=== PATIENT | male | born 1985 | race Caucasian/White ===

== ENCOUNTER 2017-10-02 13:57 | Emergency (ER) | payer SELFPAY ==
[2017-10-02] VITALS (7 sets, daily range): BP systolic 121–162; BP diastolic 72–99; PULSE 69–88; RESP 16–18; TEMP 36.8; O2SAT 96–100; BMI 24.5
--- NOTE | 2017-10-02 15:30 | ED.DCSUM_ITS ---
- ER Visit Summary Date of Service: 10/02/17 Chief Complaint: Seeking help for substance abuse and vague suicidal ideation History of Present Illness: The patient is a 31 M with a history of traumatic brain injury and drug addiction who presents with his family for an intervention. Patient states he is having thoughts of not wanting to be here anymore but denies any actual active suicidal thoughts or a plan. He was in court today for another GRANT for using marijuana. Patient endorses current marijuana use but denies any other substance use actively. He denies having any withdrawal symptoms. He drinks 5-6 beers a day with the last one this morning. No history of withdrawal seizures. Family states that the patient's daughter is now old enough to understand what he is going through and they want him to get some inpatient help because outpatient treatments in the past have been manipulated by him. As any other medical history. Physical Examination: Vital signs: afebrile, hemodynamically stable, no hypoxia on room air General: well nourished, well developed, in no distress Skin: warm, dry, no rash, no pallor HEENT: normocephalic and atraumatic; PERRL, EOMI, moist mucous membranes Cardiovascular: regular rate and rhythm without murmurs, no peripheral edema, 2 + pulses all distal extremities Respiratory: No increased work of breathing, lungs are clear to auscultation bilaterally, no rales, rhonchi or wheezing Abdominal: Abdomen is soft, nontender with normoactive bowel sounds, no guarding or rebound, no masses MSK: Moves all extremities, no deformities, normal strength Neuro: Awake and alert, oriented ?4. No facial droop, sensation and motor function intact and symmetric PSych: Patient has a flat affect, no active suicidal or homicidal ideation. No appearance of interaction with internal stimuli. Test Results: Abnormal Lab Results 10/02/17 10/02/17 10/02/17 15:30 15:30 15:30 WBC 9.2 RBC 4.74 Hgb 15.6 Hct 45.1 MCV 95.1 H MCH 32.9 H MCHC 34.6 RDW 12.0 RDW Differential 40.9 Plt Count 263 MPV 9.4 Immature Gran % (Auto) 0.300 Neut % (Auto) 66.7 Lymph % (Auto) 24.6 [place] % (Auto) 7.4 Eos % (Auto) 0.8 Baso % (Auto) 0.2 Absolute Neuts (auto) 6.1 Absolute Lymphs (auto) 2.26 Total Counted Not Reportable Sodium 137 Potassium 4.1 Chloride 102 Carbon Dioxide 28.0 Anion Gap 7 BUN 23 H Creatinine 1.02 Estim Creat Clear Calc 133.46 Est GFR (MDRD) Af Amer 110 Est GFR (MDRD) Non-Af 91 BUN/Creatinine Ratio 22.5 H Glucose 89 Calcium 9.1 Total Bilirubin Direct Bilirubin AST ALT Alkaline Phosphatase Total Protein Albumin Globulin TSH 0.89 Urine Opiates Screen Urine Methadone Screen Ur Barbiturates Screen Ur Phencyclidine Scrn Ur Amphetamines Screen U Methamphetamin-MDMA U Benzodiazepines Scrn Urine Cocaine Screen U Cannabinoids Screen Ur Drug Screen Comment Ethyl Alcohol < 3.0 10/02/17 10/02/17 15:30 15:45 WBC RBC Hgb Hct MCV MCH MCHC RDW RDW Differential Plt Count MPV Immature Gran % (Auto) Neut % (Auto) Lymph % (Auto) [place] % (Auto) Eos % (Auto) Baso % (Auto) Absolute Neuts (auto) Absolute Lymphs (auto) Total Counted Sodium Potassium Chloride Carbon Dioxide Anion Gap BUN Creatinine Estim Creat Clear Calc Est GFR (MDRD) Af Amer Est GFR (MDRD) Non-Af BUN/Creatinine Ratio Glucose Calcium Total Bilirubin 0.80 Direct Bilirubin 0.19 AST 15 ALT 25 Alkaline Phosphatase 86 Total Protein 7.8 Albumin 4.2 Globulin 3.6 TSH Urine Opiates Screen NEGATIVE Urine Methadone Screen NEGATIVE Ur Barbiturates Screen NEGATIVE Ur Phencyclidine Scrn NEGATIVE Ur Amphetamines Screen NEGATIVE U Methamphetamin-MDMA NEGATIVE U Benzodiazepines Scrn NEGATIVE Urine Cocaine Screen NEGATIVE U Cannabinoids Screen POSITIVE H Ur Drug Screen Comment Ethyl Alcohol Emergency Department Course and Treatment: Patient was medically cleared, and his tox screen was positive only for cannabinoids. No signs of alcohol withdrawal while in the emergency department. He was evaluated by the crisis intervention team, who felt he was actively suicidal, as the patient told them his plan was to intentionally overdose on heroin to kill himself. Because he is now making actively suicidal statements and has a plan, he will be placed in an inpatient facility. Final disposition is pending placement for further psychiatric care. Treatment Plan: [] Disposition: anticipate transfer to inpatient psychiatric treatment facility Impression: Polysubstance abuse, alcohol abuse, suicidal ideation This note was generated with Gl[employer]ople dictation software. It may contain incorrect words, spelling, and punctuation that were not noted in review of the chart prior to signing ED Disposition - Plan for ED Patient: Chief Complaint: Suicidal Referrals: Mohsen Mchugh MD [Primary Care Provider] -
--- NOTE | 2017-10-02 15:42 | EKG12_ITS ---
Test Reason : MENTAL HEALTH Blood Pressure : / mmHG Vent. Rate : 060 BPM Atrial Rate : 060 BPM P-R Int : 152 ms QRS Dur : 106 ms QT Int : 400 ms P-R-T Axes : 034 039 051 degrees QTc Int : 400 ms Normal sinus rhythm Normal ECG Confirmed by CHITRA PERERA, JOVON ([id number]), commissioning editor GERARD HANDLEY ([id number] on 10/05/2017 2:16:01 PM Referred By: KRISTIN Confirmed By:JOVON BUENROSTRO MD
[2017-10-02 16:15] LABS: Amphetamine Urine VISTA NEGATIVE (<1000 ng/mL); Barbiturate Urine VISTA NEGATIVE (< 200 ng/mL); Benzodiazepine Urine VISTA NEGATIVE (< 200 ng/mL); Cocaine Urine VISTA NEGATIVE (< 300 ng/mL); Ecstacy Urine VISTA NEGATIVE (< 500 ng/mL); Methadone Urine VISTA NEGATIVE (< 300 ng/mL); PCP Urine VISTA NEGATIVE (< 25 ng/mL); THC Urine VISTA POSITIVE (< 50 ng/mL); Vista UDS pH Range 5
[2017-10-02 16:15] LABS: Absolute Lymphocyte Count 2.26 X10^3/ul (0.83-4.51); Absolute Neutrophil Count 6.1 X10^3/uL (2.0-7.7); Basophil# 0.02 X10^3/uL; Basophil% 0.2 % (0-1); Eosinophil# 0.07 X10^3/uL; Eosinophils% 0.8 % (0-5); Hematocrit 45.1 % (40-54); Hemoglobin 15.6 g/dl (13.0-16.5); Lymphocyte # 2.26 X10^3/ul (4.0); Lymphocyte % 24.6 % (19-41); Mean Corp Hgb Conc 34.6 g/gl (32-36); Mean Corpuscular Hgb 32.9 pg (27.0-32.0); Mean Corpuscular Volume 95.1 fL (80-94); Mean Platelet Vol. 9.4 fl (6.2-12.0); Monocyte# 0.68 X10^3/uL; Monocyte% 7.4 % (0-10); Neutrophil # 6.13 X10^3/uL (2.7-7.7); Neutrophil % 66.7 % (47-70); Platelet Count 263 K/mm3 (150-450); RBC Distribution Width SD 40.9 fl (35.1-43.9); Red Blood Count 4.74 M/mm3 (4.6-6.2); White Blood Count 9.2 K/mm3 (4.4-11.0)
[2017-10-02 16:16] LABS: POSITIVE COUNT NO; POSITIVE DIFFERENTIAL NO; POSITIVE MORPHOLOGY NO
[2017-10-02 16:17] LABS: Anion Gap 7 (5-15); BUN 23 mg/dL (7-18); BUN/Creat Ratio 22.5 RATIO (10-20); Calcium,Total 9.1 mg/dL (8.5-10.1); Chloride 102 mmol/L (98-107); Creatinine, Serum 1.02 mg/dL (0.70-1.30); EST Glomerular Filtration Rate 91 mL/min (>60); Est Glom Filt Rate - Afr Amer 110 mL/min (>60); Estimated Creatinine Clearance 133.46 ml/min; Glucose 89 mg/dL (74-106); Potassium 4.1 mmol/L (3.5-5.1); Sodium Level 137 mmol/L (136-145); Thyroid Stim Hormone (TSH) 0.89 uIU/mL (0.358-3.74)
[2017-10-02 16:23] LABS: Alcohol, Blood (Medical)-Serum < 3.0 mg/dL
--- NOTE | 2017-10-02 16:28 | ED.RN ---
[facility]
[2017-10-02 21:32] LABS: AST(SGOT) 15 U/L (15-37); Alanine Aminotransfer ALT/SGPT 25 U/L (16-61); Albumin, Serum 4.2 g/dL (3.2-5.0); Alkaline Phosphatase 86 U/L (45-117); Bilirubin, Direct 0.19 mg/dL (0.00-0.30); Globulin 3.6 g/dL (2.2-4.2); Protein, Total 7.8 g/dL (6.4-8.2)
[2017-10-03] VITALS (7 sets, daily range): BP systolic 104–126; BP diastolic 65–77; PULSE 54–84; RESP 14–18; TEMP 36.8; O2SAT 98–100
== END 2017-10-03 09:30 ==
PROVIDERS: Emergency Provider Emergency Medicine; Family Provider Family Medicine; PCP Family Medicine
DX: R45.851 Suicidal ideations (principal); F19.10 Other psychoactive substance abuse, uncomplicated; F10.10 Alcohol abuse, uncomplicated; Y90.9 Presence of alcohol in blood, level not specified; Z87.820 Personal history of traumatic brain injury; Z72.0 Tobacco use; F12.90 Cannabis use, unspecified, uncomplicated
CPT/HCPCS: 80048; 80076; 80307; 80320; 84443; 85025; 93005; 99284; G0480

== ENCOUNTER 2019-05-27 20:36 | Emergency (ER) | payer SELFPAY ==
[2017-10-02 14:00] VITALS: BMI 24.5
[2019-05-27 20:36] VITALS: BP 175/75; PULSE 67; RESP 16; TEMP 36.4; O2SAT 97; BMI 21.9
--- NOTE | 2019-05-27 20:49 | CT_ITS ---
STUDY: CT CERVICAL SPINE WITHOUT CONTRAST REASON FOR EXAM: Male, 33 years old. RADIATION DOSAGE (If Supplied By Facility): CTDIvol = ( 22.53 ) mGy, DLP = ( 652.30 ) mGycm TECHNIQUE: High resolution transaxial imaging was performed without contrast material. Sagittal and coronal images were reconstructed. Individualized dose optimization techniques were used for this CT. COMPARISON: None FINDINGS: Normal craniovertebral junction. Normal anterior atlantoaxial articulation. Normal odontoid process. Normal cervical lordosis. Normal vertebral bodies and posterior osseous elements. C2-3: Normal endplates. Normal disc height and morphology. Normal central canal and intervertebral neuroforamina. C3-4: Normal endplates. Normal disc height and morphology. Normal central canal and intervertebral neuroforamina. C4-5: Normal endplates. Normal disc height and morphology. Normal central canal and intervertebral neuroforamina. C5-6: Normal endplates. Normal disc height and morphology. Normal central canal and intervertebral neuroforamina. C6-7: Normal endplates. Normal disc height and morphology. Normal central canal and intervertebral neuroforamina. C7-T1: Normal endplates. Normal disc height and morphology. Normal central canal and intervertebral neuroforamina. Normal visualized soft tissue structures. CT/Spine Cervical without Contras IMPRESSION: Normal unenhanced CT examination of the cervical spine. Electronically Signed: Jazmin Solares MD at 21:42 EDT Tel , Service support ,
--- NOTE | 2019-05-27 20:49 | CT_ITS ---
STUDY: CT BRAIN WITHOUT CONTRAST REASON FOR EXAM: Male, 33 years old. Fell from attic to floor. RADIATION DOSAGE (If Supplied By Facility): CTDIvol = ( 44.99 ) mGy, DLP = ( 829.85 ) mGycm TECHNIQUE: Transaxial CT imaging of the brain was performed without administration of intravenous contrast material. Individualized dose optimization techniques were used for this CT. COMPARISON: No relevant priors. FINDINGS: Normal soft tissue structures. Normal calvarium. Normal size ventricles and extra-axial spaces for the patient's age. Normal white matter tracts of the cerebral hemispheres. Normal basal ganglia and thalami. Normal brainstem. Normal cerebellum. There is no intracranial hemorrhage. There are no findings of an acute ischemic infarction. There is partial opacification of the ethmoid sinuses may be secondary to history of sinusitis. CT/Brain/Head without Contrast IMPRESSION: No acute intracranial process. Electronically Signed: Jazmin Solares MD at 21:40 EDT Tel , Service support ,
--- NOTE | 2019-05-27 20:50 | RAD_ITS ---
STUDY: X-RAY CHEST REASON FOR EXAM: Male, 33 years old. Fall out of attic. Pain. TECHNIQUE: Frontal and lateral views of the chest. COMPARISON: None. FINDINGS: The lungs are clear and expanded. There is no demonstrated pleural abnormality. Normal size heart. Normal mediastinum and suzi. Normal visualized pulmonary arteries. Normal visualized aortic arch and descending thoracic aorta. Normal visualized thoracic spine. Normal visualized ribs, clavicles, and shoulders. There is no demonstrated abnormality of the visualized soft tissue structures of the upper abdomen. RAD/Chest PA and Lateral IMPRESSION: No acute cardiopulmonary process. Electronically Signed: Jazmin Solares MD at 21:48 EDT Tel , Service support ,
--- NOTE | 2019-05-27 20:50 | RAD_ITS ---
STUDY: X-RAY - RIGHT WRIST REASON FOR EXAM: Male, 33 years old. Fall. TECHNIQUE: 3 view(s) of the wrist were obtained. COMPARISON: None. FINDINGS: There is a nondisplaced intra-articular distal radial fracture. No dislocation is visualized. There is overlying soft tissue swelling. Normal visualized distal ulna. Normal radiocarpal articulation. Normal distal radioulnar articulation. Normal carpal bones. Normal carpal articulations. Normal carpometacarpal articulation of the thumb. Normal second through fifth carpometacarpal articulations. Normal visualized metacarpal bones. RAD/Wrist min 3 Views IMPRESSION: Intra-articular distal radial fracture. Electronically Signed: Jazmin Solares MD at 21:50 EDT Tel , Service support ,
--- NOTE | 2019-05-27 20:53 | CT_ITS ---
STUDY: CT ABDOMEN AND PELVIS WITHOUT CONTRAST REASON FOR EXAM: Male, 33 years old. Fall. RADIATION DOSAGE (If Supplied By Facility): CTDIvol = ( 13.66 ) mGy, DLP = ( 713.09 ) mGycm TECHNIQUE: Transaxial images were obtained from the dome of the diaphragm to the symphysis pubis without oral contrast, and without intravenous contrast. Sagittal and coronal images were reconstructed. Individualized dose optimization techniques were used for this CT. COMPARISON: None. FINDINGS: The visualized lung bases are unremarkable. The visualized portions of the heart are within normal limits. The lack of intravenous contrast limits evaluation of solid visceral organs. Normal liver. Normal gallbladder and extrahepatic biliary system. Normal spleen. Normal pancreas. Normal bilateral adrenal glands. Normal right kidney. Normal left kidney. Normal visualized stomach. Normal small intestine. Normal colon. There is non-visualization of the appendix. Normal abdominal aorta. Normal inferior vena cava. Normal retroperitoneum. Normal urinary bladder. Normal abdominal wall. Normal osseous structures. CT/Abdomen/Pelvis without Cont IMPRESSION: No acute intra-abdominal injury. Electronically Signed: Jazmin Solares MD at 21:47 EDT Tel , Service support ,
--- NOTE | 2019-05-27 20:53 | RAD_ITS ---
STUDY: X-RAY - PELVIS AND RIGHT HIP REASON FOR EXAM: Male, 33 years old. Fall. TECHNIQUE: 2 views of the pelvis and hip. COMPARISON: None. FINDINGS: There is a non-specific bowel gas pattern. Normal visualized soft tissue structures. Normal bilateral iliac wings, sacroiliac joints and visualized sacrum. Normal bilateral superior and inferior pubic rami. Normal pubic symphysis. Normal bilateral ischial tuberosities. Normal visualized femoral head. Normal acetabulum. Normal hip joint. RAD/Hip Min 2 Views (Portable) IMPRESSION: Normal x-ray examination of the pelvis and hip. Electronically Signed: Jazmin Solares MD at 21:51 EDT Tel , Service support ,
--- NOTE | 2019-05-27 20:55 | ED.DCSUM_ITS ---
History of Present Illness Chief Complaint: Fall Informant: Patient, Family Onset: Today Current Severity: Moderate Maximum Severity: Moderate Narrative: Patient presents after a fall. Patient states he was working in an attic on some insulation and fell through the attic opening into the floor below. He reportedly did lose consciousness. He states he members waking up on the floor. Mother states she was called around 1215 after his fall. He presents 8 hours after the injury for evaluation. His primary complaints at this time her right wrist and right hip pain. He has not had vision change. He does complain of generalized headache and neck pain. - Past Medical History (1) TBI (traumatic brain injury) Status: Acute Past Medical History - Allergies and Home Meds Allergies/Adverse Reactions: Allergies No Known Allergies Allergy (Verified 10/02/17 14:02) Primary Care Physician: Jed Jean Baptiste DO [STAFF PHYSICIAN] - 5-7 Days Mohsen Mchugh MD [Primary Care Provider] - Prior records reviewed: Yes Past Medical History: - - Reviewed Smoking Status: Light Smoker (<10/day) Drugs: Marijuana Review of Systems General: Denies: Chills, Fever Eyes: Denies: Visual changes - bilaterally ENT: Denies: Bilateral ear pain Cardiovascular: Reports: Chest pain - Right rib pain Respiratory: Reports: Dyspnea - Short of breath with attempts to take deep breath Gastrointestinal: Denies: Abdominal pain, Vomiting Musculoskeletal: Reports: Neck pain, Back pain, Extremity Pain Neurological: Reports: Headache. Denies: Parasthesia Hematologic: Denies: Easy bruising, Easy bleeding Allergy: Denies: Uticaria Physical Exam Vital Signs/Narrative: Vital Signs Temp Pulse Resp BP Pulse Ox 05/27/19 20:36 97.6 F L 67 16 175/75 H 97 Inital Vital Signs reviewed: Yes General: Well nourished, Well developed Head: - - Few abrasions noted to the left forehead Eyes: Perrl, EOMI Neck: - - Mild midline cervical tenderness. Cardiovascular: Regular rate, Regular rhythm Respiratory: No distress, CTA bilaterally, Chest tenderness - Mild right rib tenderness. No crepitus. Abdomen: Soft, Nontender Back: Spinal tenderness - Tenderness with erythema over the lower thoracic/upper lumbar spine. Extremities: - - Edema and tenderness to palpation over the right wrist. No tenderness at the right elbow or right shoulder. Right lower extremity examination reveals abrasions and early ecchymosis on the proximal right thigh. Skin: - - Abrasions to forehead and right proximal thigh/hip Neurological: Alert, Oriented x3 Psychological: Normal affect Diagnostic/Tx/Re-eval Impressions Brain CT 05/27/19 20:49 IMPRESSION: No acute intracranial process. Electronically Signed: Jazmin Solares MD at 21:40 EDT Tel , Service support , Cervical Spine CT 05/27/19 20:49 IMPRESSION: Normal unenhanced CT examination of the cervical spine. Electronically Signed: Jazmin Solares MD at 21:42 EDT Tel , Service support , Chest X-Ray 05/27/19 20:50 IMPRESSION: No acute cardiopulmonary process. Electronically Signed: Jazmin Solares MD at 21:48 EDT Tel , Service support , Wrist X-Ray 05/27/19 20:50 IMPRESSION: Intra-articular distal radial fracture. Electronically Signed: Jazmin Solares MD at 21:50 EDT Tel , Service support , Abdomen/Pelvis CT 05/27/19 20:53 IMPRESSION: No acute intra-abdominal injury. Electronically Signed: Jazmin Solares MD at 21:47 EDT Tel , Service support , Hip X-Ray 05/27/19 20:53 IMPRESSION: Normal x-ray examination of the pelvis and hip. Electronically Signed: Jazmin Solares MD at 21:51 EDT Tel , Service support , 05/27/19 20:49 CT Cervical [Spine Cervical without Contras] [CT] Stat CT Head [Brain/Head without Contrast] [CT] Stat 05/27/19 20:50 Chest PA and Lateral [RAD] Stat Wrist min 3 Views [RAD] Stat 05/27/19 20:53 Abdomen/Pelvis without Cont [CT] Stat Hip Min 2 Views (Portable) [RAD] Stat - Medical Decision Making Patient was given 2 tabs of [place] here. On repeat evaluation is resting comfortably. Right wrist is splinted in an AP splint. Following splint application is good cap refill and can wiggle fingers distally. Patient has seen [facility] in the past and will follow up with them. He will be given a prescription for [place] at home. Procedures - Upper Extremity Splints Upper Extremity Splint: Orthoglass, - - AP Splint Fabrication: Fabricated Location: Right ED Disposition - Plan for ED Patient: Disposition: Home or Assisted Living Diagnosis: Fall, Right wrist fracture Instructions: FALL, Mechanical, FRACTURE, Wrist [General] Prescriptions: Hydrocodone Bitart/Apap 5-325 [[place] 5MG-325MG] 1 tab PO Q6H PRN PRN 3 Days #10 tab PRN Reason: Pain Prescription Printed Referrals: Mohsen Mchugh MD [Primary Care Provider] - Jed Jean Baptiste DO [STAFF PHYSICIAN] - 5-7 Days
[2019-05-27 20:59] VITALS: O2SAT 97
[2019-05-27] MEDS: HYDROcodone Bitartrate/Apap 5/325 Tablet PO (21:29)
[2019-05-27 22:42] VITALS: BP 120/89; PULSE 67; RESP 16; O2SAT 97
== END 2019-05-27 22:43 | disposition home or self-care (01) ==
PROVIDERS: Emergency Provider Emergency Medicine; Family Provider Family Medicine; PCP Family Medicine
DX: S52.571A Other intraarticular fracture of lower end of right radius, initial encounter for closed fracture (principal); W17.89XA Other fall from one level to another, initial encounter; Y93.89 Activity, other specified; Y92.098 Other place in other non-institutional residence as the place of occurrence of the external cause; Y99.9 Unspecified external cause status; F17.200 Nicotine dependence, unspecified, uncomplicated; Z87.820 Personal history of traumatic brain injury
CPT/HCPCS: 25605; 70450; 71046; 72125; 73110; 73502; 74176; 99283

== ENCOUNTER 2021-03-09 11:18 | Emergency (ER) | payer SELFPAY ==
[2019-10-08 12:42] VITALS: BMI 21.9
[2021-03-09 11:20] VITALS: BP 118/66; PULSE 54; RESP 14; TEMP 36.1; O2SAT 99; BMI 21.3
--- NOTE | 2021-03-09 12:14 | RAD_ITS ---
STUDY: X-RAY - LUMBAR SPINE REASON FOR EXAM: Male, 35 years old. Injury/Pain TECHNIQUE: 3 view(s) of the lumbar spine were obtained. COMPARISON: None FINDINGS: Normal lumbar lordosis. Mild levoscoliosis centered at L3/L4. There is a normal alignment of the vertebrae. Normal vertebral bodies and endplates. Normal disc space heights. The soft tissue structures are unremarkable. RAD/Lumbar Spine 2 or 3 Views IMPRESSION: Mild levoscoliosis. MRI may be useful. Electronically Signed: Yariel Gonzalez MD at 13:08 EDT Tel , Service support ,
[2021-03-09] MEDS: HYDROcodone Bitartrate/Apap 5/325 Tablet PO (12:21)
--- NOTE | 2021-03-09 13:57 | EX.ED.GENINJ ---
HPI History of Present Illness Chief Complaint: Back Informant: patient Onset/Context/Timing Onset: Days (3) Mechanism/Context: Fall Quality of Pain: Sharp Location: Lumbar spine and paraspinal muscles, worse on the right Associated Symptoms Associated Symptoms: Negative for Parasthesias, Weakness, Loss of function, Inability to ambulate and Loss of consciousness Narrative Narrative: Patient presents with back pain that has been constant for the past 3 days. Patient states he was working on a olivier pipe when he slipped and fell. Patient states he was almost sucked into the culvert pipe. Patient states his pain is been constant. Patient states his pain is worse with certain movements. Patient states pain is worse over the right lower lumbar area. Patient denies any radiation of the pain. Patient denies any bowel or bladder changes. Patient denies any saddle anesthesia. Patient denies any paresthesias or weakness. PFSH PFSH Medical History Back pain Marijuana use Home Medications NK 03/09/21 [History Last Taken Unknown] Allergy/AdvReac Type Severity Reaction Status Date / Time No Known Allergies Allergy Verified 03/09/21 11:19 no surgical history Social History (Updated 03/09/21 @ 13:[address] Alexei Barger, DO) Smoking Status: Current every day smoker tobacco type: cigarettes substance use type: marijuana ROS ROS ED Constitutional Constitutional ED: Denies chills or fever(s) Eyes Eyes: Denies blurry vision or change in vision ENT ENT ED: Denies rhinorrhea or sore throat Cardiovascular Cardiovascular: Denies chest pain or palpitations Respiratory/Chest Respiratory/Chest: Denies cough or dyspnea Gastrointestinal Gastrointestinal: Denies nausea or vomiting Genitourinary Genitourinary ED: Denies dysuria or hematuria Musculoskeletal Musculoskeletal: Reports back pain; Denies neck pain Integumentary Denies abscess or rash Neurologic Neurologic: Denies headache(s) or weakness Allergic/Immunologic Allergic/Immunologic ED: Denies mouth swelling or urticaria EXAM Physical Exam Const Vital Signs: 03/09/21 11:20 Temperature 96.9 F L Temperature Source Temporal Pulse Rate 54 L Respiratory Rate 14 Blood Pressure 118/66 Blood Pressure Mean 83 Pulse Ox 99 Oxygen Delivery Method Room Air Positive well nourished and well developed General Appearance ED: well developed HEENT atraumatic Back/Spine Back/Spine Narrative: There is tenderness over the lumbar spine and paraspinal muscles. Paraspinal tenderness is worse on the right. There is no bony crepitance or step-off. There is no edema or ecchymosis. Range of motion was limited in all motions of the lumbar spine secondary to pain. Strength is 5/5 bilaterally in lower extremities. There are no sensory deficits noted. Neuro oriented x3, CN's II-XII intact bilaterally, moves all extremities, no focal motor deficits and no sensory deficits noted Sensorium / Orientation: alert Psych mental status grossly normal MDM MDM MDM Narrative Medical decision making narrative: Patient was given a dose of [place] here. X-rays of the lumbar spine were obtained. There are 3 views. On my interpretation, there is no acute fracture or dislocation. There is no spondylolisthesis or spondylolysis. Radiologist also interpreted the x-rays and agrees. Patient was advised of his findings. Patient was instructed use ice to the area. Patient was instructed to use Tylenol or ibuprofen as needed for pain. Patient was instructed to follow-up with his primary care physician in 5 to 7 days. Patient understood and was agreeable with the plan. All questions were answered. Radiography Diagnostic Testing: Radiology Impression Lumbar Spine X-Ray 03/09/21 12:14 IMPRESSION: Mild levoscoliosis. MRI may be useful. Electronically Signed: Yariel Gonzalez MD at 13:08 EDT Tel , Service support , Discharge Plan Triage Chief Complaint: Back ED Provider: Alexei Barger Dx/Rx/DC Orders Clinical Impression: Acute lumbar myofascial strain Instructions: ED Back Sprain/Strain Prescriptions: No Action NK RF: 0 Primary Care Provider: Mohsen Mchugh Referrals: Mohsen Mchugh MD [Primary Care Provider] - 3-5 Days Disposition Disposition: Home, Self Care
[2021-03-09] MEDS: Ketorolac 60 MG/2 ML Vial IM (14:20)
[2021-03-09 14:39] VITALS: BP 97/57; PULSE 58; RESP 16
== END 2021-03-09 14:49 | disposition home or self-care (01) ==
PROVIDERS: Emergency Provider Emergency Medicine; PCP Family Medicine
DX: S39.012A Strain of muscle, fascia and tendon of lower back, initial encounter (principal); W01.0XXA Fall on same level from slipping, tripping and stumbling without subsequent striking against object, initial encounter; Y93.89 Activity, other specified; Y92.89 Other specified places as the place of occurrence of the external cause; Y99.8 Other external cause status; F17.210 Nicotine dependence, cigarettes, uncomplicated
CPT/HCPCS: 72100; 96372; 99283